=== PATIENT | male | born 2000 | race African-American/Black ===

== ENCOUNTER 2022-03-04 07:55 | Emergency (ER) | payer BC ==
[~2022-03-04] VITALS: Ht 180.3 cm; Wt 81.6 kg
--- NOTE | 2022-03-04 07:55 | NUR ---
Patient to bed 4 by [facility] at this time
[2022-03-04 08:00] VITALS: BP 106/56
--- NOTE | 2022-03-04 08:05 | NUR ---
21 Y.O M BIBA C/O BACK PAIN. 05/23 PAIN WHEN HE MOVES. DENIES ANY INJURY. DENIES PAIN WHEN URINATING, N/V/D, SOB AND CHEST PAIN. A&OX4, SLOW STEADY GAIT, SKIN INTACT, AND VITALS WNL FOR PT. NP NKA
[2022-03-04] MEDS ORDERED: KETOROLAC 30 MG/ML VIAL IM ONE (08:30)
[2022-03-04] MEDS ORDERED: METH-1681 PO (08:41)
[2022-03-04] MEDS ORDERED: LID5T TP (08:41)
[2022-03-04] MEDS ORDERED: IBUP-2213 PO (08:41)
[2022-03-04 08:54] VITALS: BP 106/56
--- NOTE | 2022-03-04 08:55 | NUR ---
Patient discharged with v/s stable. Written and verbal after care instructions given and explained. Patient alert, oriented and verbalized understanding of instructions. Ambulatory with steady gait. All questions addressed prior to discharge. ID band removed. Patient advised to follow up with PMD. Rx of LIDODERM PATCH, ROBAXIN AND IBUPROFEN given. Patient educated on indication of medication including possible reaction and side effects. Opportunity to ask questions provided and answered.
== END 2022-03-04 08:55 | disposition home or self-care (01) ==
LOC: MED 07:55
DX: S29.012A Strain of muscle and tendon of back wall of thorax, initial encounter (principal); X58.XXXA Exposure to other specified factors, initial encounter; Y93.89 Activity, other specified; Y92.89 Other specified places as the place of occurrence of the external cause; Y99.8 Other external cause status
CPT/HCPCS: 81002; 96372; 99283; J1885